=== PATIENT | male | born 1990 | race Caucasian/White ===

== ENCOUNTER 2018-09-30 19:41 | Emergency (ER) | payer MEDICAID ==
--- NOTE | 2018-09-30 20:08 | EDM.PDOC ---
ED HPI GENERAL MEDICAL PROBLEM - General Chief Complaint: ENT Problem Stated Complaint: RIGHT EAR PAIN Time Seen by Provider: 09/30/18 19:57 Source of Information: Reports: Patient History Limitations: Reports: No Limitations - History of Present Illness INITIAL COMMENTS - FREE TEXT/NARRATIVE: 2 day history right ear pain, sore throat, nasal congestion. No fevers/chills. No cough/wheeze/SOB No other pain complaint. Denies GI changes and changes. No rashes. No focal neuro complaints. Has been taking ibuprofen about twice a day for the pain. 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 ED EXAM, ENT - Physical Exam Exam: See Below Exam Limited By: No Limitations General Appearance: Alert, WD/WN, No Apparent Distress Eye Exam: Bilateral Eye: EOMI, PERRL Ears: Normal Canal, Hearing Grossly Normal, TM Erythema (right side). No: Canal Blood, TM Bulging Nose: Normal Inspection Mouth/Throat: Normal Inspection. No: Muffled Voice, Pharyngeal Erythema, Tonsillar Erythema, Tonsillar Exudates, Tonsillar Swelling, Uvular Edema Head: Atraumatic, Normocephalic Neck: Normal Inspection, Supple, Non-Tender, Full Range of Motion Respiratory/Chest: No Respiratory Distress, Lungs Clear, Normal Breath Sounds, No Accessory Muscle Use Cardiovascular: Regular Rate, Rhythm, No Murmur GI/Abdominal: Soft, Non-Tender (Male) Exam: Deferred Rectal (Males) Exam: Deferred Back: No: Muscle Spasm Extremities: Normal Capillary Refill Neurological: Alert, Oriented, Normal Cognition, Normal Gait Psychiatric: Normal Affect, Normal Mood Skin: Warm, Dry, Intact, Normal Color Course - Vital Signs Last Recorded V/S: Last Vital Signs Temp 37.2 C 09/30/18 19:42 Pulse 62 09/30/18 19:42 Resp 20 09/30/18 19:42 BP 131/54 L 09/30/18 19:42 Pulse Ox 98 09/30/18 19:42 - Re-Assessments/Exams Free Text/Narrative Re-Assessment/Exam: 09/30/18 20:04 Right reddened TM, retracted. Given Amox from ER cabinet. Patient cautioned that ear changes could be viral in nature. Departure - Departure Time of Disposition: 20:05 Disposition: Home, Self-Care 01 Condition: Good Clinical Impression: Otitis media Qualifiers: Otitis media type: unspecified Chronicity: acute Qualified Code(s): H66.90 - Otitis media, unspecified, unspecified ear Upper respiratory infection Qualifiers: URI type: unspecified viral URI Qualified Code(s): J06.9 - Acute upper respiratory infection, unspecified - Discharge Information *PRESCRIPTION DRUG MONITORING PROGRAM REVIEWED*: Not Applicable *COPY OF PRESCRIPTION DRUG MONITORING REPORT IN PATIENT HARSH: Not Applicable Instructions: Otitis Media, Adult, [id number] Additional Instructions: Take one Amox tablet daily every 8 hours for 5 days. If pain has not improved, you may add an extra 2-3 days. Throw away unused pills after your treatment is over. Observe for changes. Follow up as needed if you have problems.
== END 2018-09-30 20:15 | disposition home or self-care (01) ==
LOC: LL.ED 19:41
DX: H66.91 Otitis media, unspecified, right ear (principal); J06.9 Acute upper respiratory infection, unspecified
CPT/HCPCS: 99282

== ENCOUNTER 2019-03-25 20:56 | Emergency (ER) | payer MEDICAID ==
[2019-03-25] MEDS ORDERED: Doxycycline 100 MG Cap PO ONE (21:20)
--- NOTE | 2019-03-25 21:21 | EDM.PDOC ---
ED HPI GENERAL MEDICAL PROBLEM - General Chief Complaint: General Stated Complaint: congestion Time Seen by Provider: 03/25/19 20:58 Source of Information: Reports: Patient History Limitations: Reports: No Limitations - History of Present Illness INITIAL COMMENTS - FREE TEXT/NARRATIVE: Patient reports 2-3 weeks congestion/cough. No pain. No fevers. and child with similar symptoms over same timeframe. All of them "got worse" the last 2-3 days. Smoker. No GI complaints. No other complaints. 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 Throat Pain Score (Numeric/FACES): 4 - Related Data Allergies Allergy/AdvReac Type Severity Reaction Status Date / Time No Known Allergies Allergy Verified 03/25/19 21:00 Home Meds: Home Meds Ibuprofen 400 mg PO BID PRN 09/30/18 [History] Doxycycline [Vibramycin] 100 mg PO BID #13 cap 03/25/19 [Rx] Past Medical History - Past Health History Medical/Surgical History: Denies Medical/Surgical History - Infectious Disease History Infectious Disease History: Reports: Chicken Pox, Influenza Social & Family History - Tobacco Use Smoking Status *Q: Light Tobacco Smoker - Caffeine Use Caffeine Use: Reports: Coffee, Energy Drinks, Soda ED ROS GENERAL - Review of Systems Review Of Systems: See Below Constitutional: Reports: No Symptoms. Denies: Fever, Chills, Malaise, Weakness , Fatigue, Night Sweats, Diaphoresis, Decreased Appetite HEENT: Reports: Ear Pain, Rhinitis, Sinus Problem, Throat Pain. Denies: Eye Discharge, Throat Swelling, Vision Change Respiratory: Reports: Cough, Sputum (clear). Denies: Shortness of Breath, Wheezing, Pleuritic Chest Pain, Hemoptysis Cardiovascular: Reports: No Symptoms. Denies: Chest Pain GI/Abdominal: Reports: No Symptoms : Reports: No Symptoms Musculoskeletal: Reports: No Symptoms Skin: Reports: No Symptoms Neurological: Reports: No Symptoms. Denies: Headache Psychiatric: Reports: No Symptoms Hematologic/Lymphatic: Reports: No Symptoms ED EXAM, GENERAL - Physical Exam Exam: See Below Exam Limited By: No Limitations General Appearance: Alert, WD/WN, No Apparent Distress Eye Exam: Bilateral Eye: EOMI, PERRL Ears: Normal External Exam, Normal Canal, Hearing Grossly Normal, Normal TMs Nose: No: Nasal Deformity, Nasal Swelling, Nasal Drainage Throat/Mouth: Normal Lips, Normal Oropharynx, Normal Voice, No Airway Compromise , Other (poor dentition) Head: Atraumatic, Normocephalic Neck: Normal Inspection, Supple, Non-Tender, Full Range of Motion. No: Lymphadenopathy (L), Lymphadenopathy (R) Respiratory/Chest: No Respiratory Distress, Lungs Clear, Normal Breath Sounds, No Accessory Muscle Use Cardiovascular: Regular Rate, Rhythm, No Murmur GI/Abdominal: Soft, Non-Tender, No Distention Back Exam: No: CVA Tenderness (L), CVA Tenderness (R), Muscle Spasm Extremities: Normal Range of Motion, Normal Capillary Refill Neurological: Alert, Oriented, Normal Cognition, Normal Gait Psychiatric: Normal Affect, Normal Mood Skin Exam: Warm, Dry, Intact, Normal Color Course - Vital Signs Last Recorded V/S: Last Vital Signs Temp 36.9 C 03/25/19 21:01 Pulse 67 03/25/19 21:01 Resp 16 03/25/19 21:01 BP 128/72 03/25/19 21:01 Pulse Ox 98 03/25/19 21:01 - Orders/Labs/Meds Orders: Active Orders 24 hr Category Date Time Status CULTURE STREP A CONFIRMATION [RM] Stat Lab 03/25/19 21:02 Results STREP SCRN A RAPID W CULT CONF [RM] Stat Lab 03/25/19 20:58 Ordered Meds: Medications Discontinued Medications Generic Name Dose Route Start Last Admin Trade Name Charly PRN Reason Stop Dose Admin Doxycycline Hyclate 100 mg 03/25/19 21:20 Vibramycin PO 03/25/19 21:21 ONETIME ONE - Re-Assessments/Exams Free Text/Narrative Re-Assessment/Exam: 03/25/19 21:25 Rapid strep negative. Patient most likely has symptoms related to viral infection. Given the persistence of the symptoms will give Rx for Doxy but did first encourage the patient to avoid starting antibiotics at this time. He was made aware that viral URI symptoms can persist for weeks. Patient however is insistent he does not wish to wait any longer to start medications. To follow up as needed. Departure - Departure Time of Disposition: 21:19 Disposition: Home, Self-Care 01 Condition: Good Clinical Impression: Respiratory tract infection - Discharge Information *PRESCRIPTION DRUG MONITORING PROGRAM REVIEWED*: Not Applicable *COPY OF PRESCRIPTION DRUG MONITORING REPORT IN PATIENT HARSH: Not Applicable Prescriptions: Doxycycline [Vibramycin] 100 mg PO BID #13 cap Instructions: Acute Bronchitis, Adult, [id number] Forms: ED Department Discharge Additional Instructions: Take Doxy every 12 hours for a week. Follow up with your clinic as needed. Sepsis Event Note - Evaluation Sepsis Screening Result: No Definite Risk - Focused Exam Vital Signs: Vital Signs Temp Pulse Resp BP Pulse Ox 03/25/19 21:01 36.9 C 67 16 128/72 98 Date Exam was Performed: 03/25/19 Time Exam was Performed: 21:21 - My Orders Last 24 Hours: My Active Orders 03/25/19 20:58 STREP SCRN A RAPID W CULT CONF [RM] Stat 03/25/19 21:02 CULTURE STREP A CONFIRMATION [RM] Stat - Assessment/Plan Last 24 Hours: My Active Orders 03/25/19 20:58 STREP SCRN A RAPID W CULT CONF [RM] Stat 03/25/19 21:02 CULTURE STREP A CONFIRMATION [RM] Stat
== END 2019-03-25 21:40 | disposition home or self-care (01) ==
LOC: LL.ED 20:56
DX: J98.8 Other specified respiratory disorders (principal); F17.200 Nicotine dependence, unspecified, uncomplicated; Z79.899 Other long term (current) drug therapy
CPT/HCPCS: 87081; 87430; 99283; A9270

== ENCOUNTER 2023-02-07 18:22 | Emergency (ER) | payer MEDICAID ==
[2023-02-07] MEDS ORDERED: Lidocaine 1% 5 ML VIAL INJECT ONE (19:12)
[2023-02-07] MEDS: Penicillin G Benzathine 1,200,000 Units/2 ML Syringe IM ONE (19:24)
== END 2023-02-07 19:50 | disposition home or self-care (01) ==
LOC: LL.ED 18:22
DX: J02.0 Streptococcal pharyngitis (principal)
CPT/HCPCS: 87430; 96372; 99283; J0561

== ENCOUNTER 2023-02-28 20:05 | Emergency (ER) | payer MEDICAID ==
[2023-02-28] MEDS ORDERED: Acetaminophen 325 MG Tab PO ONE (20:23)
== END 2023-02-28 20:38 | disposition home or self-care (01) ==
LOC: LL.ED 20:05
DX: H93.8X1 Other specified disorders of right ear (principal); Z79.1 Long term (current) use of non-steroidal anti-inflammatories (NSAID)
CPT/HCPCS: 99282

== ENCOUNTER 2023-09-24 17:14 | Emergency (ER) | payer MEDICAID ==
[2023-09-24] MEDS ORDERED: Sodium Chloride 0.9% 10 ML Syringe FLUSH PRN (17:31)
[2023-09-24 17:38] LABS: BASOPHILS ABSOLUTE AUTO 0.02 K/uL (0.00-0.20); BASOPHILS PERCENT AUTO 0.3 % (0.0-2.0); EOSINOPHILS ABSOLUTE AUTO 0.11 K/uL (0.00-0.50); EOSINOPHILS PERCENT AUTO 1.6 % (0.0-5.0); HEMATOCRIT 44.1 % (39.0-49.0); HEMOGLOBIN 15.5 g/dL (13.1-16.8); LYMPHOCYTES ABSOLUTE AUTO 1.95 K/uL (0.50-3.50); LYMPHOCYTES PERCENT AUTO 28.8 % (10.0-50.0); MEAN CORPUSCULAR HEMOGLOBIN 30.6 pg (28.2-33.3); MEAN CORPUSCULAR HGB CONC 35.1 g/dL (31.7-36.0); MEAN CORPUSCULAR VOLUME 87.2 fL (84.0-98.0); MONOCYTES ABSOLUTE AUTO 0.52 K/uL (0.00-1.00); MONOCYTES PERCENT AUTO 7.7 % (2.0-14.0); NEUTROPHILS ABSOLUTE AUTO 4.16 K/uL (1.40-7.00); NEUTROPHILS PERCENT AUTO 61.6 % (45.0-80.0); PLATELET COUNT,PLT 198 K/uL (150-350); RED BLOOD CELL COUNT 5.06 M/uL (4.33-5.41); RED CELL DISTRIBUTION WIDTH 12.6 % (11.2-14.1); WHITE BLOOD CELL COUNT,WBC 6.8 K/uL (4.0-10.2)
[2023-09-24 17:42] LABS: INR 1.1 (0.9-1.1); PROTHROMBIN TIME 11.2 SEC (9.0-11.1)
[2023-09-24 17:58] LABS: ALANINE AMINOTRANSFERASE,ALT 37 U/L (12-78); ALBUMIN 4.3 g/dL (3.4-5.0); ALKALINE PHOSPHATASE 68 IU/L (46-116); ANION GAP 11.6 meq/L (7-15); ASPARTATE AMNIOTRANSFERASE,AST 13 U/L (15-37); BILIRUBIN TOTAL 0.6 mg/dL (0.2-1.0); BLOOD UREA NITROGEN,BUN 14 mg/dL (7-18); CALCIUM 8.8 mg/dL (8.5-10.1); CARBON DIOXIDE,CO2 25.4 mmol/L (21.0-32.0); CHLORIDE,CL 103 mmol/L (98-107); CREATININE 1.21 mg/dL (0.51-1.17); ESTIMATED GFR 82 mL/min (>=60); GLUCOSE RANDOM 112 mg/dL (70-99); MAGNESIUM 1.8 mg/dL (1.8-2.4); POTASSIUM,K 3.9 mmol/L (3.5-5.1); PROTEIN TOTAL,TP 7.1 g/dL (6.4-8.2); SODIUM,NA 140 mmol/L (136-145)
[2023-09-24] MEDS: Lactated Ringers 1,000 ML IV ONE (18:08)
== END 2023-09-24 19:25 | disposition home or self-care (01) ==
LOC: LL.ED 17:14
DX: R42 Dizziness and giddiness (principal); Z79.899 Other long term (current) drug therapy
CPT/HCPCS: 36415; 70450; 80053; 83735; 85025; 85610; 93005; 96360; 99284; J7120

== ENCOUNTER 2023-10-14 14:04 | Emergency (ER) | payer MEDICAID ==
[2023-10-14 14:25] LABS: BASOPHILS ABSOLUTE AUTO 0.03 K/uL (0.00-0.20); BASOPHILS PERCENT AUTO 0.3 % (0.0-2.0); EOSINOPHILS ABSOLUTE AUTO 0.09 K/uL (0.00-0.50); EOSINOPHILS PERCENT AUTO 0.8 % (0.0-5.0); HEMATOCRIT 41.6 % (39.0-49.0); HEMOGLOBIN 14.5 g/dL (13.1-16.8); LYMPHOCYTES ABSOLUTE AUTO 0.65 K/uL (0.50-3.50); MEAN CORPUSCULAR HEMOGLOBIN 30.7 pg (28.2-33.3); MEAN CORPUSCULAR HGB CONC 34.9 g/dL (31.7-36.0); MEAN CORPUSCULAR VOLUME 88.1 fL (84.0-98.0); MONOCYTES ABSOLUTE AUTO 0.83 K/uL (0.00-1.00); MONOCYTES PERCENT AUTO 7.7 % (2.0-14.0); NEUTROPHILS ABSOLUTE AUTO 9.22 K/uL (1.40-7.00); NEUTROPHILS PERCENT AUTO 85.2 % (45.0-80.0); PLATELET COUNT,PLT 183 K/uL (150-350); RED BLOOD CELL COUNT 4.72 M/uL (4.33-5.41); RED CELL DISTRIBUTION WIDTH 12.4 % (11.2-14.1); WHITE BLOOD CELL COUNT,WBC 10.8 K/uL (4.0-10.2)
[2023-10-14 14:52] LABS: ALANINE AMINOTRANSFERASE,ALT 32 U/L (12-78); ALBUMIN 3.9 g/dL (3.4-5.0); ALKALINE PHOSPHATASE 68 IU/L (46-116); ANION GAP 14.4 meq/L (7-15); ASPARTATE AMNIOTRANSFERASE,AST 18 U/L (15-37); BILIRUBIN TOTAL 0.8 mg/dL (0.2-1.0); BLOOD UREA NITROGEN,BUN 12 mg/dL (7-18); CALCIUM 8.7 mg/dL (8.5-10.1); CARBON DIOXIDE,CO2 24.5 mmol/L (21.0-32.0); CHLORIDE,CL 99 mmol/L (98-107); CREATININE 1.27 mg/dL (0.51-1.17); EST CRCL DRUG DOSING (CG) 95.24 mL/min; ESTIMATED GFR 77 mL/min (>=60); GLUCOSE RANDOM 124 mg/dL (70-99); LIPASE 29 U/L (16-77); MAGNESIUM 1.9 mg/dL (1.8-2.4); POTASSIUM,K 3.9 mmol/L (3.5-5.1); PROTEIN TOTAL,TP 7.2 g/dL (6.4-8.2); SODIUM,NA 134 mmol/L (136-145)
[2023-10-14 14:59] LABS: PROTHROMBIN TIME 10.1 SEC (9.0-11.1)
[2023-10-14 15:01] LABS: CORONAVIRUS COVID-19 NAA NEGATIVE (NEGATIVE); INFLUENZA A NAA NEGATIVE (NEGATIVE); INFLUENZA B NAA NEGATIVE (NEGATIVE); RESPIRATORY SYNCYTIAL VIR NAA NEGATIVE (NEGATIVE)
== END 2023-10-14 15:20 | disposition home or self-care (01) ==
LOC: LL.ED 14:04
DX: J06.9 Acute upper respiratory infection, unspecified (principal); F17.210 Nicotine dependence, cigarettes, uncomplicated; Z79.899 Other long term (current) drug therapy
CPT/HCPCS: 0241U; 36415; 71045; 80053; 83690; 83735; 84484; 85025; 85610; 93005; 93010; 99284; 99285

== ENCOUNTER 2024-12-14 08:38 | Emergency (ER) | payer MEDICAID ==
[2024-12-14] MEDS: Take Home: Oseltamivir Phosphate 75 MG, 6 Cap Pack PO ONE (10:09)
== END 2024-12-14 10:10 | disposition home or self-care (01) ==
LOC: LL.ED 08:38
DX: J10.1 Influenza due to other identified influenza virus with other respiratory manifestations (principal); Z79.899 Other long term (current) drug therapy; Z87.891 Personal history of nicotine dependence
CPT/HCPCS: 87428-QW; 87651; 99283; A9270-GY